=== PATIENT | female | born 1950 | race Caucasian/White ===

== ENCOUNTER 2017-03-28 12:08 | Emergency (ER) | payer SELFPAY ==
[~2017-03-28] VITALS: Ht 154.9 cm; Wt 79.0 kg
[2017-03-28 12:09] VITALS: BP 153/69; PULSE 102; RESP 15; TEMP 98; O2SAT 98
--- NOTE | 2017-03-28 12:26 | PD ---
Physical Exam Time Seen by Provider: 12:25 Narrative 67yo F c/o abd pain x4 days. Hx of similar symptoms. +vomiting. Subjective fever. Denies diarrhea or urinary symptoms. Had Ct scan by PCP and was told had hernia. Patient seen in triage. VS reviewed. Patient awaiting bed placement. Data Data Last Documented VS Vital Signs Date Time Temp Pulse Resp B/P Pulse Ox O2 Delivery O2 Flow Rate FiO2 03/28/17 12:09 98.0 102 15 153/69 98 MDM Supervised Visit with YULIYA: Carmencita Russell Mar 28, 2017 12:26
== END 2017-03-28 15:33 | disposition left against medical advice (07) ==
LOC: NED 12:08
DX: R10.9 Unspecified abdominal pain (principal)
CPT/HCPCS: 99281

== ENCOUNTER 2017-03-29 15:47 | Inpatient (IN) | payer MEDICARE, OTHER ==
[2017-03-29] VITALS (8 sets, daily range): BP systolic 138–173; BP diastolic 68–95; PULSE 74–90; RESP 14–20; TEMP 96.1–98.3; O2SAT 94–99
[~2017-03-29] VITALS: Ht 154.9 cm; Wt 81.7 kg
[2017-03-29] MEDS ORDERED: SODIUM CHLOR 0.9% 1000 ML INJ 1,000 ML IV SCH (16:16)
--- NOTE | 2017-03-29 16:27 | PD ---
HPI Chief Complaint: Abdominal Pain Time Seen by Provider: 15:59 Travel History International Travel<30 days: No Contact w/Intl Traveler<30days: No Traveled to known affect area: No History of Present Illness HPI Patient is a 67-year-old female presents to the emergency department with lower quadrant abdominal cramping for the past 5 days associated with nausea one or 2 episodes of vomiting and no changes in bowel habits. She states that she's also had some distention. She states similar thing happen to her in December and she went to her primary care physician and did an x-ray and a CAT scan of her abdomen showing only a small ventral hernia which was not incarcerated. She does have a history of ovarian cancer as well as breast cancer both of which were surgically treated and radiation therapy but has never had been on chemotherapy. She also states that during her surgery for hysterectomy and they discovered a small tumor in her bowel never resected that as well and did a primary anastomosis. She denies any fevers denies any chest pain shortness of breath or extremity pain. States pain is cramping gradually worsening PFSH Past Medical History Cancer: Yes Ovarian Cysts: Yes (REMOVED) Past Surgical History Abdominal Surgery: Yes (HERNIA) Appendectomy: Yes Hysterectomy: Yes (2005) Other Surgery: Yes (LOWER PART OF COLON REMOVED, LUMPECTOMY) Social History Alcohol Use: No Tobacco Use: No Substance Use: No Allergies-Medications (Allergen,Severity, Reaction): Coded Allergies: No Known Allergies (Unverified , 03/29/17) Reported Meds & Prescriptions Reported Meds & Active Scripts Active No Active Prescriptions or Reported Medications Review of Systems Except as stated in HPI: all other systems reviewed are Neg Physical Exam Narrative GENERAL: Well-developed well-nourished in no obvious distress. SKIN: Focused skin assessment warm/dry. HEAD: Atraumatic. Normocephalic. EYES: Pupils equal and round. No scleral icterus. No injection or drainage. ENT: No nasal bleeding or discharge. Mucous membranes pink and moist. NECK: Trachea midline. No JVD. CARDIOVASCULAR: Regular rate and rhythm. No murmur appreciated. RESPIRATORY: No accessory muscle use. Clear to auscultation. Breath sounds equal bilaterally. GASTROINTESTINAL: Abdomen soft, non-tender, mildly distended. Tympanic percussion. No rebound no percussive tenderness.. Hepatic and splenic margins not palpable. MUSCULOSKELETAL: No obvious deformities. No clubbing. No cyanosis. No edema. NEUROLOGICAL: Awake and alert. No obvious cranial nerve deficits. Motor grossly within normal limits. Normal speech. PSYCHIATRIC: Appropriate mood and affect; insight and judgment normal. Data Data Last Documented VS Vital Signs Date Time Temp Pulse Resp B/P Pulse Ox O2 Delivery O2 Flow Rate FiO2 03/29/17 19:12 85 16 142/79 99 Room Air 03/29/17 15:50 98.3 Orders Complete Blood Count With Diff (03/29/17 16:16) Comprehensive Metabolic Panel (03/29/17 16:16) Lipase (03/29/17 16:16) Prothrombin Time / Inr (Pt) (03/29/17 16:16) Act Partial Throm Time (Ptt) (03/29/17 16:16) Urinalysis - C+S If Indicated (03/29/17 16:16) Iv Access Insert/Monitor (03/29/17 16:16) Ecg Monitoring (03/29/17 16:16) Oximetry (03/29/17 16:16) Ondansetron Inj (Zofran Inj) (03/29/17 16:30) Sodium Chlor 0.9% 1000 Ml Inj (Ns 1000 M (03/29/17 16:16) Sodium Chloride 0.9% Flush (Ns Flush) (03/29/17 16:30) Electrocardiogram (03/29/17 16:16) Urine Culture (03/29/17 16:25) Ct Abd/Pel W Iv Contrast(Rout) (03/29/17 ) Iohexol 350 Inj (Omnipaque 350 Inj) (03/29/17 19:01) Promethazine Inj (Phenergan Inj) (03/29/17 20:00) Insert Ng Tube (03/29/17 20:06) Admit Order (Ed Use Only) (03/29/17 ) Consult General Surgery (03/29/17 ) Chest, Single Ap (03/29/17 ) Labs Laboratory Tests Test 03/29/17 16:25 White Blood Count 5.5 TH/MM3 Red Blood Count 4.18 MIL/MM3 Hemoglobin 12.7 GM/DL Hematocrit 37.6 % Mean Corpuscular Volume 89.8 FL Mean Corpuscular Hemoglobin 30.4 PG Mean Corpuscular Hemoglobin 33.9 % Concent Red Cell Distribution Width 13.4 % Platelet Count 268 TH/MM3 Mean Platelet Volume 6.6 FL Neutrophils (%) (Auto) 70.9 % Lymphocytes (%) (Auto) 18.7 % Monocytes (%) (Auto) 9.0 % Eosinophils (%) (Auto) 0.9 % Basophils (%) (Auto) 0.5 % Neutrophils # (Auto) 4.0 TH/MM3 Lymphocytes # (Auto) 1.0 TH/MM3 Monocytes # (Auto) 0.5 TH/MM3 Eosinophils # (Auto) 0.0 TH/MM3 Basophils # (Auto) 0.0 TH/MM3 CBC Comment DIFF FINAL Differential Comment Prothrombin Time 10.3 SEC Prothromb Time International 0.9 RATIO Ratio Activated Partial 22.6 SEC Thromboplast Time Urine Collection Type VOIDED Urine Color YELLOW Urine Turbidity SLIGHT Urine pH 6.0 Urine Specific [place] 1.026 Urine Protein 30 mg/dL Urine Glucose (UA) NEG mg/dL Urine Ketones TRACE mg/dL Urine Occult Blood LARGE Urine Nitrite NEG Urine Bilirubin NEG Urine Leukocyte Esterase SMALL Urine WBC 9-14 /hpf Urine WBC Clumps RARE Urine Squamous Epithelial 3-5 /hpf Cells Urine Calcium Oxalate Crystals RARE /hpf Urine Bacteria RARE /hpf Urine Mucus MANY /lpf Microscopic Urinalysis Comment CULTURE INDICATED Sodium Level 138 MEQ/L Potassium Level 3.5 MEQ/L Chloride Level 105 MEQ/L Carbon Dioxide Level 26.3 MEQ/L Anion Gap 7 MEQ/L Blood Urea Nitrogen 20 MG/DL Creatinine 1.10 MG/DL Estimat Glomerular Filtration 50 ML/MIN Rate Random Glucose 107 MG/DL Calcium Level 8.6 MG/DL Total Bilirubin 0.9 MG/DL Aspartate Amino Transf 97 U/L (AST/SGOT) Alanine Aminotransferase 107 U/L (ALT/SGPT) Alkaline Phosphatase 88 U/L Total Protein 7.0 GM/DL Albumin 3.4 GM/DL Lipase 191 U/L [facility] Medical Decision Making Medical Screen Exam Complete: Yes Emergency Medical Condition: Yes Differential Diagnosis Pancreatitis, cholecystitis, small bowel obstruction, gallstone ileus, ileus, Narrative Course Patient roomed emergency department, although she appears comfortable given her surgical history and her distention a CAT scan was ordered which does show evidence for small bowel obstruction. Films were reviewed with Dr. Rios who noted that the patient also does have some gallstones and some elevated transaminases and may be partially due to a gallstone ileus. Patient may also have a transition point with anastomosis of her previous site. Patient was discussed with Dr. Oconnell for admission and she is agreeable. The patient feeling more comfortable, and NG tube was passed and confirmed with x-ray. Diagnosis Primary Impression: Small bowel obstruction Admitting Information Admitting Physician Requests: Admit Scripts No Active Prescriptions or Reported Meds Condition: Stable Yoseph Tom MD Mar 29, 2017 16:27
[2017-03-29] MEDS ORDERED: SODIUM CHLORIDE 0.9% FLUSH 10 ML FLUSH IV FLUSH PRN ×2 (16:30→20:45)
[2017-03-29] MEDS ORDERED: ONDANSETRON HCL 4 MG/2 ML VIAL IVP ONE (16:30)
[2017-03-29 16:32] LABS: BASOPHIL % 0.5 % (0.0-2.0); EOSINOPHIL % 0.9 % (0.0-4.0); HEMATOCRIT 37.6 % (35.0-46.0); HEMO FLAGS DIFF FINAL; LYMPH % 18.7 % (9.0-44.0); MEAN CELL VOLUME 89.8 FL (80.0-100.0); MEAN CORPUSCULAR HEMOGLOBIN 30.4 PG (27.0-34.0); MEAN CORPUSCULAR HGB CONC 33.9 % (32.0-36.0); NEUT % 70.9 % (16.0-70.0); PLATELET COUNT 268 TH/MM3 (150-450); RED BLOOD COUNT 4.18 MIL/MM3 (4.00-5.30); RED CELL DISTRIBUTION WIDTH 13.4 % (11.6-17.2); WHITE BLOOD COUNT 5.5 TH/MM3 (4.0-11.0)
[2017-03-29 16:37] LABS: BLOOD, URINE LARGE (NEG); GLUCOSE,URINE NEG (NEG); KETONE, URINE TRACE mg/dL (NEG); NITRITE,URINE NEG (NEG)
[2017-03-29 16:40] LABS: CHLORIDE 105 MEQ/L (98-107); METHOD OF COLLECTION VOIDED; POTASSIUM 3.5 MEQ/L (3.5-5.1); SODIUM (NA) 138 MEQ/L (136-145); URINE COLOR YELLOW (YELLW/STRAW)
[2017-03-29 16:42] LABS: MUCUS URINE MANY /lpf (OCC)
[2017-03-29 16:44] LABS: ANION GAP 7 MEQ/L (5-15); BACTERIA, URINE RARE /hpf; BICARBONATE 26.3 MEQ/L (21.0-32.0); BLOOD UREA NITROGEN 20 MG/DL (7-18); CALCIUM OXALATE CRYSTALS,URINE RARE /hpf; COMMENT (UR) CULTURE INDICATED; CULTURE IF INDICATED CULTURE INDICATED
[2017-03-29 16:46] LABS: APTT (PATIENT) 22.6 SEC (24.3-30.1); INTERNATIONAL NORMALIZED RATIO 0.9 RATIO; PROTHROMBIN TIME - PATIENT 10.3 SEC (9.8-11.6)
[2017-03-29 16:47] LABS: ALT (GPT) 107 U/L (10-53); AST (GOT) 97 U/L (15-37); GLOMERULAR FILTRATION RATE 50 ML/MIN (>89)
[2017-03-29 16:50] LABS: ALKALINE PHOSPHATASE 88 U/L (45-117); TOTAL BILIRUBIN ADULT 0.9 MG/DL (0.2-1.0)
[2017-03-29] MEDS ORDERED: IOHEXOL 350 MG/ML 10 ML VIAL (for RAD DIAG) IV ONE (19:01)
--- NOTE | 2017-03-29 19:52 | RADRPT ---
EXAM DATE/TIME: 03/29/2017 18:43 [facility] COMPARISON: No previous studies available for comparison. INDICATIONS : Central lower abdominal pain. Nausea. IV CONTRAST: 85 cc Omnipaque 350 (iohexol) IV ORAL CONTRAST: No oral contrast ingested. RADIATION DOSE: 17.86 CTDIvol (mGy) MEDICAL HISTORY : Carcinoma, colon. Carcinoma, breast. SURGICAL HISTORY : Appendectomy. Hysterectomy.Colon resection.Bilateral breast lumpectomy. ENCOUNTER: Initial ACUITY: 4 - 6 days PAIN SCALE: 7/10 LOCATION: lower quadrant TECHNIQUE: Volumetric scanning of the abdomen and pelvis was performed. Using automated exposure control and ad justment of the mA and/or kV according to patient size, radiation dose was kept as low as reasonably achievable to obtain optimal diagnostic quality images. DICOM format image data is available electro nically for review and comparison. FINDINGS: LOWER LUNGS: There is a subsegmental infiltrate in the right costophrenic angle measuring 1.7 cm. Small hiatus he rnia. No evidence of pleural effusion. LIVER: Homogeneous density without lesion. There is no dilation of the biliary tree. There are 4 periphera lly calcified gallstones near the neck which measure up to 7 mm in size.. SPLEEN: Normal size without lesion. PANCREAS: Within normal limits. KIDNEYS: Normal in size and shape. There is no mass, stone or hydronephrosis. ADRENAL GLANDS: Within normal limits. VASCULAR: There is no aortic aneurysm. BOWEL/MESENTERY: Abnormal. Small bowel is diffusely dilated to the anastomosis suture with colon. Small bowel loops measure up to 3.9 cm in length. Some mild air fluid levels are seen in loops in the central and left abdomen. The colon is not dilated. There is a moderate amount of free fluid in the dependent pelvi s measuring up to 4 cm in size. ABDOMINAL WALL: Small outpouching of the midline lower abdominal wall at the vertical incision site. A small hernia defect cannot be excluded. In the soft tissues of the posterior right parasagittal mid abdomen, ther e is a 2.9 cm subcutaneous nodule with smooth margins and no calcification, mean CT density 4 Hounsfi eld units. RETROPERITONEUM: There is no lymphadenopathy. BLADDER: No wall thickening or mass. REPRODUCTIVE: Within normal limits. INGUINAL: There is no lymphadenopathy or hernia. MUSCULOSKELETAL: Moderate degenerative changes in the posterior elements of the lower lumbar spine. CONCLUSION: 1. Evidence of small bowel obstruction at the level of the anastomosis with colon. Prominent amount of free fluid in the pelvis. 2. Subsegmental infiltrate in the right lower lung. 3. There is a small defect at the inferior aspect vertical midline surgery site suggesting small vent ral hernia. Corbin Mabyerry MD on March 29, 2017 at 19:39 Board Certified Radiologist. This report was verified electronically.
[2017-03-29] MEDS ORDERED: PROMETHAZINE INJ 25 MG/ML VIAL IM ONE (20:00)
[2017-03-29] MEDS: SODIUM CHLOR 0.9% 1000 ML INJ 1,000 ML IV SCH (20:44)
[2017-03-29] MEDS ORDERED: BISACODYL 10 MG SUPP RECTAL PRN (21:00)
[2017-03-29] MEDS ORDERED: SENNOSIDES 8.6 MG TAB PO PRN (21:00)
[2017-03-29] MEDS ORDERED: MAGNESIUM HYDROXIDE SUSP 30 ML CUP PO PRN (21:00)
[2017-03-29] MEDS ORDERED: ACETAMINOPHEN 1000 MG/100 ML VIAL IV PRN (21:00)
[2017-03-29] MEDS: cefTRIAXone INJ 1,000 MG in SODIUM CHLORIDE 0.9% INJ 100 ML IV SCH (21:00)
[2017-03-29] MEDS ORDERED: LACTULOSE SYRUP 20 GM/30 ML CUP PO PRN (21:00)
[2017-03-29] MEDS ORDERED: MORPHINE SULFATE 4 MG/ML INJ IV PRN ×2 (21:00)
[2017-03-29] MEDS: SODIUM CHLORIDE 0.9% FLUSH 10 ML FLUSH IV FLUSH SCH (21:00)
[2017-03-29] MEDS: DOCUSATE SODIUM 50 MG/SENNA 8.6 MG TAB PO SCH (21:00)
[2017-03-29] MEDS: PANTOPRAZOLE SODIUM 40 MG VIAL IV PUSH SCH (21:13)
[2017-03-29] MEDS: ONDANSETRON HCL 4 MG/2 ML VIAL IVP PRN (21:13)
--- NOTE | 2017-03-29 21:29 | RADRPT ---
EXAM DATE/TIME: 03/29/2017 20:46 [facility] COMPARISON: No previous studies available for comparison. INDICATIONS : Confirmantion NG tube placement. MEDICAL HISTORY : None. SURGICAL HISTORY : None. ENCOUNTER: Initial ACUITY: 4 - 6 days PAIN SCORE: 9/10 LOCATION: Bilateral abdomen FINDINGS: Gastric tube tip and side-port is projected within the stomach. The lungs are symmetrically aerated. Some linear atelectasis or scarring is seen in the lower lungs bilaterally. Both hemidiaphragms ar e well delineated. Multiple hemoclips project about the left breast. The heart is normal size. CONCLUSION: Gastric tube tip and side-port project within the stomach. Corbin Mayberry MD on March 29, 2017 at 21:27 Board Certified Radiologist. This report was verified electronically.
[2017-03-30 04:06] VITALS: BP 155/91; PULSE 83; RESP 16; TEMP 97.4; O2SAT 96
[2017-03-30] MEDS: SODIUM CHLOR 0.9% 1000 ML INJ 1,000 ML IV SCH ×2 (04:57→20:37)
[2017-03-30 06:57] LABS: AUTOMATED NEUTROPHIL # 3.1 TH/MM3 (1.8-7.7); BASOPHIL % 0.1 % (0.0-2.0); EOSINOPHIL % 0.9 % (0.0-4.0); HEMATOCRIT 33.8 % (35.0-46.0); HEMO FLAGS DIFF FINAL; LYMPH % 21.3 % (9.0-44.0); MEAN CELL VOLUME 91.6 FL (80.0-100.0); MEAN CORPUSCULAR HEMOGLOBIN 30.9 PG (27.0-34.0); MEAN CORPUSCULAR HGB CONC 33.7 % (32.0-36.0); MONO % 12.3 % (0.0-8.0); NEUT % 65.4 % (16.0-70.0); PLATELET COUNT 241 TH/MM3 (150-450); RED BLOOD COUNT 3.69 MIL/MM3 (4.00-5.30); RED CELL DISTRIBUTION WIDTH 13.4 % (11.6-17.2); WHITE BLOOD COUNT 4.7 TH/MM3 (4.0-11.0)
[2017-03-30 06:58] LABS: CHLORIDE 106 MEQ/L (98-107); POTASSIUM 4.1 MEQ/L (3.5-5.1); SODIUM (NA) 139 MEQ/L (136-145)
[2017-03-30 07:03] LABS: ANION GAP 6 MEQ/L (5-15); BICARBONATE 27.4 MEQ/L (21.0-32.0)
[2017-03-30 07:06] LABS: ALT (GPT) 89 U/L (10-53); AST (GOT) 51 U/L (15-37); BLOOD UREA NITROGEN 14 MG/DL (7-18); GLOMERULAR FILTRATION RATE 57 ML/MIN (>89)
[2017-03-30 07:09] LABS: ALKALINE PHOSPHATASE 83 U/L (45-117); TOTAL BILIRUBIN ADULT 0.5 MG/DL (0.2-1.0)
--- NOTE | 2017-03-30 07:45 | PD.CONS ---
HPI Service General Surgery Consult Requested By Dr. Tom Reason for Consult [facility] Primary Care Physician Non-Staff History of Present Illness 67 yo F with a history of colon cancer status post cecectomy presents with nausea and vomiting 5 days associated with abdominal pain. The pain is off and on and she tolerated some liquids. She has had similar problems for about 1 year which generally resolve on their own. In December in [place] she had a CT of her abdomen and pelvis for these problems and was told she has a small ventral hernia. The the episodes occur every 2-3 months. Her last bowel movement was a couple of days ago. She was evaluated in the emergency department and noted to have a CT scan of the abdomen and pelvis showing small bowel obstruction at the site of her ileocolic anastomosis. Past surgical history includes an 2008 she underwent bilateral salpingo-oophorectomy for ovarian cysts at which time they did a hysterectomy and found an incidental cecal mass and performed a cecectomy revealing colon cancer. She's also had left breast lumpectomy for breast cancer. She says that she has regular colonoscopies. Review of Systems Constitutional: DENIES: Fever, Chills Eyes: DENIES: Eye inflammation, Eye pain Ears, nose, mouth, throat: DENIES: Nasal discharge, Throat pain Respiratory: DENIES: Cough, Shortness of breath Cardiovascular: DENIES: Chest pain, Palpitations Gastrointestinal: COMPLAINS OF: Abdominal pain, Nausea, Vomiting Musculoskeletal: DENIES: Stiffness, Joint Swelling Integumentary: DENIES: Pruritus, Rash Neurologic: DENIES: Seizures, Tremor Past Family Social History Past Medical History Colon cancer Breast cancer Past Surgical History Hysterectomy/cecectomy Left breast lumpectomy 2 Reported Medications Reported Meds & Active Scripts Active No Active Prescriptions or Reported Medications Allergies: Coded Allergies: No Known Allergies (Unverified , 03/29/17) Active Ordered Medications Current Medications Medications (Trade) Dose Ordered Sig/Roxanne Route Start Time Stop Time Status Last Admin Sodium Chloride 2 ml 2 ml UNSCH PRN IV FLUSH 03/29/17 16:30 (Rocephin Inj/NS Inj) 100 ml @ 200 mls/hr Q24H IV 03/29/17 21:00 03/29/17 21:00 Pantoprazole Sodium 40 mg 40 mg Q12H IV PUSH 03/29/17 21:00 03/29/17 21:13 (NS 1000 ml Inj) 1,000 ml @ 100 mls/hr Q10H IV 03/29/17 20:44 03/30/17 04:57 (NS Flush) 2 ml UNSCH PRN IV FLUSH 03/29/17 20:45 (NS Flush) 2 ml BID IV FLUSH 03/29/17 21:00 (Zofran Inj) 4 mg Q6H PRN IVP 03/29/17 22:00 03/29/17 21:13 (Morphine Inj) 1 mg Q3H PRN IV 03/29/17 21:00 (Morphine Inj) 2 mg Q3H PRN IV 03/29/17 21:00 03/29/17 21:13 (Ofirmev Inj) 1,000 mg Q6H PRN IV 03/29/17 21:00 03/30/17 15:01 (Alena-Colace) 1 tab BID PO 03/29/17 21:00 (Milk Of Magnesia Liq) 30 ml Q12HR PRN PO 03/29/17 21:00 (Senokot) 17.2 mg Q12HR PRN PO 03/29/17 21:00 (Dulcolax Supp) 10 mg DAILY PRN RECTAL 03/29/17 21:00 (Lactulose Liq) 30 ml DAILY PRN PO 03/29/17 21:00 Family History Noncontributory Social History Denies alcohol tobacco or drug use. She has a home in [place] but she is in the process of trying to move permanently to [place]. Physical Exam Vital Signs Vital Signs Date Time Temp Pulse Resp B/P Pulse Ox O2 Delivery O2 Flow Rate FiO2 03/30/17 04:06 97.4 83 16 155/91 96 03/29/17 22:30 96.1 90 16 173/95 94 03/29/17 22:28 74 16 146/68 98 Room Air 03/29/17 21:01 87 14 147/74 98 Room Air 03/29/17 19:12 85 16 142/79 99 Room Air 03/29/17 18:08 82 18 146/79 96 03/29/17 16:32 82 20 147/73 96 03/29/17 16:27 96 03/29/17 15:50 98.3 90 16 138/87 96 Physical Exam GENERAL: Awake and alert. No acute distress. Cooperative. HEAD: Normocephalic. Atraumatic. EYES: Pupils equal round and reactive to light bilaterally. No scleral icterus. ENT: Moist oral mucosa. NG tube in place with clear output. CHEST: Lungs clear to auscultation bilaterally with no wheezing or rhonchi. No respiratory distress. CARDIOVASCULAR: Regular rate and rhythm. ABDOMEN: Well-healed lower midline incision to just above the umbilicus. Mild distention. Mild diffuse tenderness to palpation. No rebound or guarding. EXTREMITIES: No cyanosis or edema. SKIN: Warm, dry, nonjaundiced. Laboratory Laboratory Tests Test 03/29/17 03/30/17 16:25 06:00 White Blood Count 5.5 4.7 Red Blood Count 4.18 3.69 Hemoglobin 12.7 11.4 Hematocrit 37.6 33.8 Mean Corpuscular Volume 89.8 91.6 Mean Corpuscular Hemoglobin 30.4 30.9 Mean Corpuscular Hemoglobin 33.9 33.7 Concent Red Cell Distribution Width 13.4 13.4 Platelet Count 268 241 Mean Platelet Volume 6.6 7.0 Neutrophils (%) (Auto) 70.9 65.4 Lymphocytes (%) (Auto) 18.7 21.3 Monocytes (%) (Auto) 9.0 12.3 Eosinophils (%) (Auto) 0.9 0.9 Basophils (%) (Auto) 0.5 0.1 Neutrophils # (Auto) 4.0 3.1 Lymphocytes # (Auto) 1.0 1.0 Monocytes # (Auto) 0.5 0.6 Eosinophils # (Auto) 0.0 0.0 Basophils # (Auto) 0.0 0.0 CBC Comment DIFF FINAL DIFF FINAL Differential Comment Prothrombin Time 10.3 Prothromb Time International 0.9 Ratio Activated Partial 22.6 Thromboplast Time Urine Collection Type VOIDED Urine Color YELLOW Urine Turbidity SLIGHT Urine pH 6.0 Urine Specific [place] 1.026 Urine Protein 30 Urine Glucose (UA) NEG Urine Ketones TRACE Urine Occult Blood LARGE Urine Nitrite NEG Urine Bilirubin NEG Urine Leukocyte Esterase SMALL Urine WBC 9-14 Urine WBC Clumps RARE Urine Squamous Epithelial 3-5 Cells Urine Calcium Oxalate Crystals RARE Urine Bacteria RARE Urine Mucus MANY Microscopic Urinalysis Comment CULTURE INDICATED Sodium Level 138 139 Potassium Level 3.5 4.1 Chloride Level 105 106 Carbon Dioxide Level 26.3 27.4 Anion Gap 7 6 Blood Urea Nitrogen 20 14 Creatinine 1.10 0.98 Estimat Glomerular Filtration 50 57 Rate Random Glucose 107 94 Calcium Level 8.6 8.1 Total Bilirubin 0.9 0.5 Aspartate Amino Transf 97 51 (AST/SGOT) Alanine Aminotransferase 107 89 (ALT/SGPT) Alkaline Phosphatase 88 83 Total Protein 7.0 6.2 Albumin 3.4 3.1 Lipase 191 Date/Time Procedure Status Source Growth 03/29/17 16:25 Urine Culture Received Urine Random Urine Pending Result Diagram: 03/30/17 0600 03/30/17 0600 Imaging Last Impressions Chest X-Ray 03/29/17 0000 Signed Impressions: Service Date/Time: March 20:46 - CONCLUSION: Gastric tube tip and side-port project within the stomach. Corbin Mayberry MD Abdomen/Pelvis CT 03/29/17 0000 Signed Impressions: Service Date/Time: March 18:43 - CONCLUSION: 1. Evidence of small bowel obstruction at the level of the anastomosis with colon. Prominent amount of free fluid in the pelvis. 2. Subsegmental infiltrate in the right lower lung. 3. There is a small defect at the inferior aspect vertical midline surgery site suggesting small ventral hernia. Corbin Mayberry MD Assessment and Plan Assessment and Plan 67-year-old female with a one-year history of intermittent abdominal pain, nausea, vomiting presents with persistent symptoms and revealed to have small bowel obstruction at the site of previous ileocolic anastomosis on CT abdomen and pelvis. I would like to attempt to see if she can pass stool through the anastomosis as she has been intermittently tolerating diet up until very recently. I will order a small bowel follow-through. If this is successful and she improves she may benefit from a colonoscopy. She would need revision of the anastomosis in the next couple of weeks. If she is unable to improve from this small bowel obstruction she will need urgent surgery probably early next week. I discussed this all with the patient and she understands. Osmel Rios MD Mar 30, 2017 07:45
[2017-03-30 08:00] VITALS: BP 148/85; PULSE 79; RESP 18; TEMP 96.8; O2SAT 91
[2017-03-30] MEDS ORDERED: DIATRIZOATE MEGLUM/DIATRIZOATE SOD 120 ML BTL (for RAD DIAG) NG ONE (08:30)
[2017-03-30] MEDS: DOCUSATE SODIUM 50 MG/SENNA 8.6 MG TAB PO SCH ×2 (09:00→20:39)
[2017-03-30] MEDS: SODIUM CHLORIDE 0.9% FLUSH 10 ML FLUSH IV FLUSH SCH ×2 (09:00→20:38)
[2017-03-30] MEDS: PANTOPRAZOLE SODIUM 40 MG VIAL IV PUSH SCH ×2 (11:02→20:38)
[2017-03-30] MEDS: ONDANSETRON HCL 4 MG/2 ML VIAL IVP PRN (11:03)
--- NOTE | 2017-03-30 11:40 | RADRPT ---
EXAM DATE/TIME: 03/30/2017 08:07 [facility] COMPARISON: No previous studies available for comparison. INDICATIONS : Evaluate Obstruction. Abdominal pain FLUORO TIME: .5 minutes IMAGE COUNT: 19 CONTRAST: [facility] IMAGING TIME(S): 15 min, 30 min, 45 min, 1 hr, 1.5 hrs, 2.5 hrs MEDICAL HISTORY : Carcinoma, colon. Carcinoma, breast. SURGICAL HISTORY : Appendectomy. Hysterectomy. Colon resection. NG tube placement, cecum removed ENCOUNTER: Initial ACUITY: 2 days PAIN SCORE: 3/10 LOCATION: lower quadrant abdomen FINDINGS: Following instillation of Gastrografin through nasogastric tube serial films were obtained. There are no constricting or obstructing lesions identified. Small bowel transit time is one hour an d 30 minutes. CONCLUSION: There is no evidence for obstruction. Ck Block MD FACR on March 30, 2017 at 11:37 Board Certified Radiologist. This report was verified electronically.
[2017-03-30 12:00] VITALS: BP_SYST 142; BP_SYST 145; BP_DIAS 71; BP_DIAS 82; PULSE 79; PULSE 88; RESP 18; TEMP 98.7; TEMP 98.8; O2SAT 91; O2SAT 95
--- NOTE | 2017-03-30 13:59 | HHI.HP ---
HPI Service [facility] Primary Care Physician Non-Staff Admission Diagnosis SBO Diagnoses: Chief Complaint: Abdominal pain Travel History International Travel<30 Days: No Contact w/Intl Traveler <30 Da: No Traveled to Known Affected Are: No History of Present Illness Written by Guerrero Guan, acting as scribe for Dr. Ely on 03/30/17 at 13:33. Patient is a 67 year old with primary medical history of breast cancer, ovarian cancer, colon cancer who came into the hospital for complaints of lower quadrant abdominal pain associated with nausea, vomiting for the past 5-6 days. Patient states that she has been having pain on and off for over a year now. It usually lasts for about 24 hours and would disappear for about 2-3 months. However, yesterday patient states that she has increasing pain and she thought it will just go away but she has been having it for 6 days and she felt so sick as the pain was rated 7/10, lower abdominal quadrant, associated with nausea and vomiting, unrelieved by not eating anything. Patient states that last December she came from [place] and her MD checked imaging studies "X-ray and CT scan they found hernia in her belly button area." States her abdominal pain has improved but has some discomfort with NGT in place. Otherwise, denies SOB/ dyspnea. Denies chest pain, palpitations, headaches, dizziness. Denies fevers, chills. Denies hematuria, dysuria. Denies hematemesis, hematochezia. she would like to drink something and would like NG tube removed. Review of Systems Except as stated in HPI: all other systems reviewed are Neg Past Family Social History Past Medical History Breast cancer Ovarian cancer Colon cancer Past Surgical History Hernia Double lumpectomy Appendectomy Cecum removal Hysterectomy Reported Medications Reported Meds & Active Scripts Active No Active Prescriptions or Reported Medications Allergies: Coded Allergies: No Known Allergies (Unverified , 03/29/17) Active Ordered Medications Current Medications Medications (Trade) Dose Ordered Sig/Roxanne Route Start Time Stop Time Status Last Admin Sodium Chloride 2 ml 2 ml UNSCH PRN IV FLUSH 03/29/17 16:30 03/30/17 11:02 (Rocephin Inj/NS Inj) 100 ml @ 200 mls/hr Q24H IV 03/29/17 21:00 03/29/17 21:00 Pantoprazole Sodium 40 mg 40 mg Q12H IV PUSH 03/29/17 21:00 03/30/17 11:02 (NS 1000 ml Inj) 1,000 ml @ 100 mls/hr Q10H IV 03/29/17 20:44 03/30/17 04:57 (NS Flush) 2 ml UNSCH PRN IV FLUSH 03/29/17 20:45 (NS Flush) 2 ml BID IV FLUSH 03/29/17 21:00 (Zofran Inj) 4 mg Q6H PRN IVP 03/29/17 22:00 03/30/17 11:03 (Morphine Inj) 1 mg Q3H PRN IV 03/29/17 21:00 (Morphine Inj) 2 mg Q3H PRN IV 03/29/17 21:00 03/29/17 21:13 (Ofirmev Inj) 1,000 mg Q6H PRN IV 03/29/17 21:00 03/30/17 15:01 (Alena-Colace) 1 tab BID PO 03/29/17 21:00 (Milk Of Magnesia Liq) 30 ml Q12HR PRN PO 03/29/17 21:00 (Senokot) 17.2 mg Q12HR PRN PO 03/29/17 21:00 (Dulcolax Supp) 10 mg DAILY PRN RECTAL 03/29/17 21:00 (Lactulose Liq) 30 ml DAILY PRN PO 03/29/17 21:00 Family History Father of lung cancer, lung cancer secondary to smoking Mother is 90 years old with Alzheimer's disease Social History Denies alcohol use Denies tobacco use Denies illicit drug use Physical Exam Vital Signs Vital Signs Date Time Temp Pulse Resp B/P Pulse Ox O2 Delivery O2 Flow Rate FiO2 03/30/17 12:00 98.8 79 18 142/82 91 03/30/17 08:00 96.8 79 18 148/85 91 03/30/17 04:06 97.4 83 16 155/91 96 03/29/17 22:30 96.1 90 16 173/95 94 03/29/17 22:28 74 16 146/68 98 Room Air 03/29/17 21:01 87 14 147/74 98 Room Air 03/29/17 19:12 85 16 142/79 99 Room Air 03/29/17 18:08 82 18 146/79 96 03/29/17 16:32 82 20 147/73 96 03/29/17 16:27 96 03/29/17 15:50 98.3 90 16 138/87 96 Physical Exam GENERAL: This is a well-nourished, well-developed patient. SKIN: No rashes, ecchymoses or lesions. Warm and dry. HEAD: Normocephalic. EYES: Pupils equal round and reactive. Extraocular motions intact. No scleral icterus. No injection or drainage. ENT: Nose without bleeding. Throat without erythema. Uvula midline. Airway patent. NGT in place to wall suction NECK: Trachea midline. Supple. CARDIOVASCULAR: Regular rate and rhythm without murmurs RESPIRATORY: Clear to auscultation. Breath sounds equal bilaterally. No wheezes GASTROINTESTINAL: Abdomen soft, nondistended, nontender to palpation on exam. Bowel sounds active 4. MUSCULOSKELETAL: Extremities without edema. NEUROLOGICAL: Awake and alert. Oriented to person, time, place. Motor and sensory grossly within normal limits. Normal speech. Laboratory Laboratory Tests Test 03/29/17 03/30/17 16:25 06:00 White Blood Count 5.5 4.7 Red Blood Count 4.18 3.69 Hemoglobin 12.7 11.4 Hematocrit 37.6 33.8 Mean Corpuscular Volume 89.8 91.6 Mean Corpuscular Hemoglobin 30.4 30.9 Mean Corpuscular Hemoglobin 33.9 33.7 Concent Red Cell Distribution Width 13.4 13.4 Platelet Count 268 241 Mean Platelet Volume 6.6 7.0 Neutrophils (%) (Auto) 70.9 65.4 Lymphocytes (%) (Auto) 18.7 21.3 Monocytes (%) (Auto) 9.0 12.3 Eosinophils (%) (Auto) 0.9 0.9 Basophils (%) (Auto) 0.5 0.1 Neutrophils # (Auto) 4.0 3.1 Lymphocytes # (Auto) 1.0 1.0 Monocytes # (Auto) 0.5 0.6 Eosinophils # (Auto) 0.0 0.0 Basophils # (Auto) 0.0 0.0 CBC Comment DIFF FINAL DIFF FINAL Differential Comment Prothrombin Time 10.3 Prothromb Time International 0.9 Ratio Activated Partial 22.6 Thromboplast Time Urine Collection Type VOIDED Urine Color YELLOW Urine Turbidity SLIGHT Urine pH 6.0 Urine Specific [place] 1.026 Urine Protein 30 Urine Glucose (UA) NEG Urine Ketones TRACE Urine Occult Blood LARGE Urine Nitrite NEG Urine Bilirubin NEG Urine Leukocyte Esterase SMALL Urine WBC 9-14 Urine WBC Clumps RARE Urine Squamous Epithelial 3-5 Cells Urine Calcium Oxalate Crystals RARE Urine Bacteria RARE Urine Mucus MANY Microscopic Urinalysis Comment CULTURE INDICATED Sodium Level 138 139 Potassium Level 3.5 4.1 Chloride Level 105 106 Carbon Dioxide Level 26.3 27.4 Anion Gap 7 6 Blood Urea Nitrogen 20 14 Creatinine 1.10 0.98 Estimat Glomerular Filtration 50 57 Rate Random Glucose 107 94 Calcium Level 8.6 8.1 Total Bilirubin 0.9 0.5 Aspartate Amino Transf 97 51 (AST/SGOT) Alanine Aminotransferase 107 89 (ALT/SGPT) Alkaline Phosphatase 88 83 Total Protein 7.0 6.2 Albumin 3.4 3.1 Lipase 191 Date/Time Procedure Status Source Growth 03/29/17 16:25 Urine Culture - Preliminary Resulted Urine Random Urine NO GROWTH IN 24 HOURS. Result Diagram: 03/30/17 0600 03/30/17 0600 Imaging Last Impressions Small Bowel X-Ray 03/30/17 0000 Signed Impressions: Service Date/Time: Thursday, March 30, 2017 08:07 - CONCLUSION: There is no evidence for obstruction. Ck Block MD FACR Chest X-Ray 03/29/17 0000 Signed Impressions: Service Date/Time: March 20:46 - CONCLUSION: Gastric tube tip and side-port project within the stomach. Corbin Mayberry MD Abdomen/Pelvis CT 03/29/17 0000 Signed Impressions: Service Date/Time: March 18:43 - CONCLUSION: 1. Evidence of small bowel obstruction at the level of the anastomosis with colon. Prominent amount of free fluid in the pelvis. 2. Subsegmental infiltrate in the right lower lung. 3. There is a small defect at the inferior aspect vertical midline surgery site suggesting small ventral hernia. Corbin Mayberry MD Assessment and Plan Problem List: (1) Small bowel obstruction ICD Code: K56.69 Status: Acute Assessment and Plan Patient is a 67 year old with primary medical history of breast cancer, ovarian cancer, colon cancer who came into the hospital for complaints of lower quadrant abdominal pain associated with nausea, vomiting for the past 5-6 days. Small bowel obstruction Abdominal pain, nausea, vomiting - CT abdomen and pelvis showed 1. Evidence of small bowel obstruction at the level of the anastomosis with: 1. Prominent amount of free fluid in the pelvis. 2. Subsegmental infiltrate in the right lower lobe. 3. There is a small defect of the inferior aspect vertical midline surgery site suggesting small ventral hernia - General surgery consulted recommended small bowel follow through which was neg. Discussed w GS and ok for advancing diet to clears. GI consult for colonoscopy by GS. - Small bowel x-ray done no evidence of obstruction - Unable to tell is she is passing gas but bowel prep made her have bowel movements/ diarrhea - NGT to LWS. will d/c per GS - Fluid hydration NS 100ml/hr - Continue ceftriaxone, zofran, pantoprazole Transaminitis - AST, ALT improving - Avoid hepatotoxins - Continue to trend LFTs Urinary tract infection - UA positive, no growth microbiology 1 day - Continue ceftriaxone - Follow-up microbiology sensitivities DVT prop ambulatory, SCD This note was transcribed by nain Guan. I, Dr. Rossy Ely personally performed the history, physical exam, and medical decision making; and confirmed the accuracy of the information in the transcribed note. Authenticated by Dr. Rossy Ely on 03/30/17 at 13:33. Code Status Full code Discussed Condition With Patient, nursing Physician Certification 2 Midnight Certification Type: Admission for Inpatient Services Order for Inpatient Services The services are ordered in accordance with Medicare regulations or non- Medicare payer requirements, as applicable. In the case of services not specified as inpatient-only, they are appropriately provided as inpatient services in accordance with the 2-midnight benchmark. Estimated LOS (days): 2 days is the estimated time the patient will need to remain in the hospital, assuming treatment plan goals are met and no additional complications. Post-Hospital Plan: Not yet determined Guerrero Samano Mar 30, 2017 13:59 Rossy Ely MD Mar 30, 2017 16:42
--- NOTE | 2017-03-30 16:42 | MB ---
cc: BRANDON BELL M.D., DPM, DATE OF CONSULTATION: 03/30/2017 REASON FOR CONSULTATION: Small bowel obstruction with nausea, vomiting and abdominal pain. HISTORY: Ms. Boucher is a 57-year-old lady with previous history of breast cancer, ovarian cancer, colon cancer who came to the hospital with nausea, vomiting, abdominal pain and distension. The original CT scan showed possibility anastomotic stricture and bowel obstruction. The recent small bowel follow-through study was essentially unremarkable. She says in December she had some nausea, vomiting and symptoms at that time she had an x-ray and a CT scan and at that time the only findings were some umbilical hernia, otherwise it was all normal. Since admission she has had an NG tube placed and removed. She has had a bowel movement and currently is asymptomatic. REVIEW OF SYSTEMS No abdominal pain. No nausea, vomiting at this time. No rectal bleeding. PAST MEDICAL HISTORY Breast cancer Ovarian cancer Colon cancer. PAST SURGICAL HISTORY Hernia surgery lumpectomy right hemicolectomy hysterectomy in 2008. MEDICATIONS On admission none. ALLERGIES None documented CURRENT MEDICATIONS 1. Pantoprazole. 2. Rocephin. FAMILY HISTORY Lung cancer. SOCIAL HISTORY No tobacco, no alcohol. PHYSICAL EXAMINATION: IN GENERAL: Physical examination reveals a well-nourished lady in no apparent distress. VITAL SIGNS: stable. HEAD/NECK: Examination; anicteric sclerae. CHEST: Bilateral air entry with rales. ABDOMEN: Abdomen is soft, nontender. No hepatosplenomegaly. Bowel sounds are present. CENTRAL NERVOUS SYSTEM: Exam is nonfocal. RECTUM: Rectal examination is deferred at this time. LABORATORY FINDINGS: The labs reveal a CT scan done which is suggestive of bowel obstruction at the level of the anastomosis. This was followed by a small bowel follow-through study which is unremarkable. This morning. The patient's white cell count 4.7, hemoglobin 11.4. Liver function tests 51 and 89 IMPRESSION Anastomotic stricture. RECOMMENDATIONS The patient states her last colonoscopy was 2-3 years ago [id number]. Colonoscopy is recommended. Currently it appears that the small bowel obstruction is resolved. The plan is to advance diet and monitor clinically, if she is well enough to go home. She can be discharged with GI follow up for outpatient colonoscopy. If symptoms persist or recur would recommend inpatient colonoscopy. Dr. Bratu will follow from tomorrow. This has been discussed with the patient and her and they are agreeable to this plan. MD TANNER Muhammad/brent /3:46 PM /4:16 PM
[2017-03-30 20:00] VITALS: BP 114/59; PULSE 84; RESP 18; TEMP 98; O2SAT 93
[2017-03-30] MEDS: cefTRIAXone INJ 1,000 MG in SODIUM CHLORIDE 0.9% INJ 100 ML IV SCH (20:42)
[2017-03-31] VITALS: BP 116/59; PULSE 90; RESP 16; TEMP 97.5; O2SAT 93
[2017-03-31] MEDS: SODIUM CHLOR 0.9% 1000 ML INJ 1,000 ML IV SCH (01:55)
[2017-03-31 08:00] VITALS: BP 130/78; PULSE 70; RESP 18; TEMP 97.9; O2SAT 92
[2017-03-31] MEDS: PANTOPRAZOLE SODIUM 40 MG VIAL IV PUSH SCH (08:32)
[2017-03-31] MEDS: DOCUSATE SODIUM 50 MG/SENNA 8.6 MG TAB PO SCH (08:32)
[2017-03-31] MEDS: SODIUM CHLORIDE 0.9% FLUSH 10 ML FLUSH IV FLUSH SCH (08:32)
--- NOTE | 2017-03-31 10:04 | HHI.GIFU ---
GI Follow-up Note Consult Follow-up Subjective: Patient laying in bed comfortably, feeling better .Tolerating diet well, had a bm .No nausea, vomiting, abdominal pain improved Objective: PHYSICAL EXAMINATION: Vitals signs stable No fever Vital Signs Date Time Temp Pulse Resp B/P Pulse Ox O2 Delivery O2 Flow Rate FiO2 03/31/17 08:00 97.9 70 18 130/78 92 HEENT: Pupils round and reactive to light; normocephalic; atraumatic; no jaundice. Throat is clear. NECK: Neck is supple, no JVD, no lymphadenopathy. CHEST: Chest is clear to auscultation and percussion. CARDIAC: Regular rate and rhythm with no murmur gallop or rubs. ABDOMEN: Soft, nondistended, nontender; no hepatosplenomegaly; bowel sounds are present in all four quadrants. EXTREMITIES: No clubbing, cyanosis, or edema. SKIN: Normal; no rash; no jaundice. TOPOLOGY TEACHER: No focal deficits; alert and oriented times three. Available Data (labs, X- Rays, Procedues) : Laboratory Tests Test 03/29/17 03/30/17 16:25 06:00 White Blood Count 5.5 TH/MM3 4.7 TH/MM3 Red Blood Count 4.18 MIL/MM3 3.69 MIL/MM3 Hemoglobin 12.7 GM/DL 11.4 GM/DL Hematocrit 37.6 % 33.8 % Mean Corpuscular Volume 89.8 FL 91.6 FL Mean Corpuscular Hemoglobin 30.4 PG 30.9 PG Mean Corpuscular Hemoglobin 33.9 % 33.7 % Concent Red Cell Distribution Width 13.4 % 13.4 % Platelet Count 268 TH/MM3 241 TH/MM3 Mean Platelet Volume 6.6 FL 7.0 FL Neutrophils (%) (Auto) 70.9 % 65.4 % Lymphocytes (%) (Auto) 18.7 % 21.3 % Monocytes (%) (Auto) 9.0 % 12.3 % Eosinophils (%) (Auto) 0.9 % 0.9 % Basophils (%) (Auto) 0.5 % 0.1 % Neutrophils # (Auto) 4.0 TH/MM3 3.1 TH/MM3 Lymphocytes # (Auto) 1.0 TH/MM3 1.0 TH/MM3 Monocytes # (Auto) 0.5 TH/MM3 0.6 TH/MM3 Eosinophils # (Auto) 0.0 TH/MM3 0.0 TH/MM3 Basophils # (Auto) 0.0 TH/MM3 0.0 TH/MM3 CBC Comment DIFF FINAL DIFF FINAL Differential Comment Prothrombin Time 10.3 SEC Prothromb Time International 0.9 RATIO Ratio Activated Partial 22.6 SEC Thromboplast Time Urine Collection Type VOIDED Urine Color YELLOW Urine Turbidity SLIGHT Urine pH 6.0 Urine Specific [place] 1.026 Urine Protein 30 mg/dL Urine Glucose (UA) NEG mg/dL Urine Ketones TRACE mg/dL Urine Occult Blood LARGE Urine Nitrite NEG Urine Bilirubin NEG Urine Leukocyte Esterase SMALL Urine WBC 9-14 /hpf Urine WBC Clumps RARE Urine Squamous Epithelial 3-5 /hpf Cells Urine Calcium Oxalate Crystals RARE /hpf Urine Bacteria RARE /hpf Urine Mucus MANY /lpf Microscopic Urinalysis Comment CULTURE INDICATED Sodium Level 138 MEQ/L 139 MEQ/L Potassium Level 3.5 MEQ/L 4.1 MEQ/L Chloride Level 105 MEQ/L 106 MEQ/L Carbon Dioxide Level 26.3 MEQ/L 27.4 MEQ/L Anion Gap 7 MEQ/L 6 MEQ/L Blood Urea Nitrogen 20 MG/DL 14 MG/DL Creatinine 1.10 MG/DL 0.98 MG/DL Estimat Glomerular Filtration 50 ML/MIN 57 ML/MIN Rate Random Glucose 107 MG/DL 94 MG/DL Calcium Level 8.6 MG/DL 8.1 MG/DL Total Bilirubin 0.9 MG/DL 0.5 MG/DL Aspartate Amino Transf 97 U/L 51 U/L (AST/SGOT) Alanine Aminotransferase 107 U/L 89 U/L (ALT/SGPT) Alkaline Phosphatase 88 U/L 83 U/L Total Protein 7.0 GM/DL 6.2 GM/DL Albumin 3.4 GM/DL 3.1 GM/DL Lipase 191 U/L ASSESSMENT/PLAN: sbo-resolved, possible stricture at anastomotic site, possible adhesions SBFT no obstruction Recommendations ok to dc home from gi point if continues to tolerated diet colonoscopy op if remains hospitalized we will schedule it on Sunday inpt fu surgery low residuum diet It was a pleasure seeing Sara Boucher Thank you for this consult. Entered by: Kay Sim MD Mar 31, 2017 10:04
--- NOTE | 2017-03-31 11:17 | HHI.PR ---
Subjective Remarks Patient feels well. Denies any abdominal pain, nausea or vomiting. Tolerating her breakfast with no difficulty. She is eager to go home if cleared. She understands that she needs a colonoscopy as an outpatient. Objective Vitals Vital Signs Date Time Temp Pulse Resp B/P Pulse Ox O2 Delivery O2 Flow Rate FiO2 03/31/17 08:00 97.9 70 18 130/78 92 03/31/17 00:00 97.5 90 16 116/59 93 03/30/17 20:00 98.0 84 18 114/59 93 03/30/17 12:00 98.8 79 18 142/82 91 03/30/17 12:00 98.7 88 18 145/71 95 I/O 03/30/17 03/30/17 03/30/17 03/31/17 03/31/17 03/31/17 06:59 14:59 22:59 06:59 14:59 22:59 Intake Total 360 ml 1360 ml 670 ml Output Total 50 ml Balance 360 ml 1310 ml 670 ml Intake Oral 360 ml 560 ml 430 ml Oral Supplement 240 ml IV Total 800 ml Output Emesis 50 ml # Voids 1 4 4 2 # Bowel Movements 4 0 0 Result Diagram: 03/30/17 0600 03/30/17 0600 Imaging Last Impressions Small Bowel X-Ray 03/30/17 0000 Signed Impressions: Service Date/Time: Thursday, March 30, 2017 08:07 - CONCLUSION: There is no evidence for obstruction. Ck Block MD FACR Chest X-Ray 03/29/17 0000 Signed Impressions: Service Date/Time: March 20:46 - CONCLUSION: Gastric tube tip and side-port project within the stomach. Corbin Mayberry MD Abdomen/Pelvis CT 03/29/17 0000 Signed Impressions: Service Date/Time: March 18:43 - CONCLUSION: 1. Evidence of small bowel obstruction at the level of the anastomosis with colon. Prominent amount of free fluid in the pelvis. 2. Subsegmental infiltrate in the right lower lung. 3. There is a small defect at the inferior aspect vertical midline surgery site suggesting small ventral hernia. Corbin Mayberry MD Objective Remarks GENERAL: This is a well-nourished, well-developed patient. EYES: Extraocular motions intact. No scleral icterus. No injection or drainage. ENT: Airway patent. NECK: Trachea midline. Supple. CARDIOVASCULAR: Regular rate and rhythm without murmurs RESPIRATORY: Clear to auscultation. Breath sounds equal bilaterally. No wheezes GASTROINTESTINAL: Abdomen soft, nondistended, nontender to palpation on exam. Bowel sounds active 4. MUSCULOSKELETAL: Extremities without edema. NEUROLOGICAL: Awake and alert. Motor and sensory grossly within normal limits. Normal speech. A/P Problem List: (1) Small bowel obstruction ICD Code: K56.69 Status: Acute Assessment and Plan Patient is a 67 year old with primary medical history of breast cancer, ovarian cancer, colon cancer who came into the hospital for complaints of lower quadrant abdominal pain associated with nausea, vomiting for the past 5-6 days. Small bowel obstruction Abdominal pain, nausea, vomiting - CT abdomen and pelvis showed 1. Evidence of small bowel obstruction at the level of the anastomosis with: 1. Prominent amount of free fluid in the pelvis. 2. Subsegmental infiltrate in the right lower lobe. 3. There is a small defect of the inferior aspect vertical midline surgery site suggesting small ventral hernia - General surgery evaluated the patient and small bowel follow through was neg. Since pt was feeling better, GS agreed to d/c NG tube and advance diet. Currently she is tolerating it. Will monitor pt until lunch and if she has no pain or n/v she can be discharged w outpatient colonocopy. GI also evaluated the pt and has cleared her for discharged and pt to schedule outpatient colonoscopy. - urine cx neg. d/c IV rocephin. Transaminitis - AST, ALT improving - Avoid hepatotoxins - Monitor LFTs as an outpatient Urinary tract infection - UA positive, no growth microbiology 2 days DVT prop ambulatory, SCD Discharge Planning discharge pt later today if tolerating lunch f/u w GI in 1-2 weeks and schedule outpatient colonoscopy. f/u w GS in 2 weeks heart healthy diet condition: stable activity: Rossy Garcia MD Mar 31, 2017 11:17
[2017-03-31 12:00] VITALS: BP 144/82; PULSE 96; RESP 18; TEMP 97.3; O2SAT 95
== END 2017-03-31 13:01 | disposition home or self-care (01) | DRG 389 ==
LOC: PHED 15:47 → PHEDA 20:43 → PH3B 22:39
PROVIDERS: ADMIT Hospitalist; ATTEND Hospitalist
DX: K56.60 Unspecified intestinal obstruction (principal); N39.0 Urinary tract infection, site not specified; K42.9 Umbilical hernia without obstruction or gangrene; Z85.038 Personal history of other malignant neoplasm of large intestine; Z85.3 Personal history of malignant neoplasm of breast; Z85.43 Personal history of malignant neoplasm of ovary
CPT/HCPCS: 43753; 71010; 74177; 74250; 80053; 81001; 83690; 85025; 85610; 85730; 87086; 96361; 96372; 96374; C9113; J0696; J2270; J2405; J2550; J7030; Q9963; Q9967

== ENCOUNTER → 2018-02-01 | Outpatient (CLI) | payer MEDICARE, OTHER ==
[2018-02-01 13:47] LABS: AST (GOT) 14 U/L (15-37); BICARBONATE 24.9 MEQ/L (21.0-32.0); BLOOD UREA NITROGEN 18 MG/DL (7-18); CALCIUM 9.2 MG/DL (8.5-10.1); CHLORIDE 109 MEQ/L (98-107); CREATININE 1.22 MG/DL (0.50-1.00); GLOMERULAR FILTRATION RATE 44 ML/MIN (>89); GLUCOSE,FASTING 93 MG/DL (74-99); SODIUM (NA) 143 MEQ/L (136-145)
[2018-02-01 13:51] LABS: ALKALINE PHOSPHATASE 68 U/L (45-117); ALT (GPT) 18 U/L (10-53); TOTAL BILIRUBIN ADULT 0.5 MG/DL (0.2-1.0); TOTAL PROTEIN 7.4 GM/DL (6.4-8.2)
== END ==
LOC: PLAB 10:24
PROVIDERS: ATTEND Family Medicine
DX: Z13.220 Encounter for screening for lipoid disorders (principal)
CPT/HCPCS: 36415; 80053